=== PATIENT | male | born 1940 | race Caucasian/White ===

== ENCOUNTER 2016-12-02 05:50 | Day surgery (SDC) | payer MEDICARE ==
[~2016-12-02] VITALS: Ht 167.6 cm; Wt 99.8 kg
[~2016-12-02 05:50] MED LIST: ADVAIR DISK1 IN; ADVAIR DISK1 INH; ALBUTEROL0.083 % IN; ALBUTEROL2.5 MG/3 M IN; ALL DAY10 MG OR; ASPIRIN81 MG OR; CLARITIN10 MG OR; COZAAR100 MG PO; DILTIAZEM120 M1 OR; FIBER THERAPY500 MG OR; FISH OIL1000 MG OR; FLUNISOLIDE0.025 %; KEFLEX500 MG PO; LASIX20 MG PO; LISINOPRIL5 MG OR; LORTAB 5-325 MG1 TAB PO; MULTIVITAM10 OR; OMEPRAZOLE20 MG OR; PREDNISONE5 MG OR; PROAIR HFA IN; ROBITUSSIN AC10 ML OR; ROBITUSSIN AC10 ML PO; SAW PALMETTO160 MG OR; SIMCOR1 TA1 OR; SINGULAIR10 MG OR; SOMA350 MG PO; TAM75CAP PO; VITAMIN B CO OR; ZITHROMAX250 MG OR; ZITHROMAX250 MG PO
[2016-12-02 07:42] VITALS: BP 127/59
== END 2016-12-02 08:20 | disposition home or self-care (01) ==
LOC: ENDO 05:50
PROVIDERS: ATTEND Surgery
PROC: 0DJD8ZZ Inspection of Lower Intestinal Tract, Via Natural or Artificial Opening Endoscopic (ICD-10-PCS; principal; 2016-12-02)
DX: Z12.11 Encounter for screening for malignant neoplasm of colon (principal); K57.30 Diverticulosis of large intestine without perforation or abscess without bleeding; J44.9 Chronic obstructive pulmonary disease, unspecified; I10 Essential (primary) hypertension

== ENCOUNTER 2017-03-11 16:27 | Emergency (ER) | payer MEDICARE ==
[~2017-03-11] VITALS: Ht 167.6 cm; Wt 100.0 kg
[2017-03-11 18:37] VITALS: BP 179/87
[2017-03-11] MEDS ORDERED: AMOXICILLIN500 MG PO (20:24)
[2017-03-11] MEDS ORDERED: LORTAB 1010 MG PO (20:24)
== END 2017-03-11 20:40 | disposition home or self-care (01) ==
LOC: ED 16:27
PROC: 0HQGXZZ Repair Left Hand Skin, External Approach (ICD-10-PCS; principal; 2017-03-11)
PROC: 2W3KX1Z Immobilization of Left Finger using Splint (ICD-10-PCS; 2017-03-11)
DX: S61.215A Laceration without foreign body of left ring finger without damage to nail, initial encounter (principal); W25.XXXA Contact with sharp glass, initial encounter; Y93.89 Activity, other specified; Y92.003 Bedroom of unspecified non-institutional (private) residence as the place of occurrence of the external cause

== ENCOUNTER 2017-03-12 15:51 | Emergency (ER) | payer MEDICARE ==
[~2017-03-12] VITALS: Ht 167.6 cm; Wt 106.0 kg
[~2017-03-12 15:51] MED LIST changes: +AMOXICILLIN500 MG PO; +LORTAB 1010 MG PO
[2017-03-12 16:50] VITALS: BP 154/77
== END 2017-03-12 16:50 | disposition home or self-care (01) ==
LOC: ED 15:51
DX: S61.215D Laceration without foreign body of left ring finger without damage to nail, subsequent encounter (principal); I10 Essential (primary) hypertension; J45.909 Unspecified asthma, uncomplicated; X58.XXXD Exposure to other specified factors, subsequent encounter

== ENCOUNTER 2017-04-06 10:15 | Emergency (ER) | payer MEDICARE ==
[~2017-04-06] VITALS: Ht 167.6 cm; Wt 110.0 kg
[2017-04-06 11:07] LABS: HEMATOCRIT 50.5 % (39.0-50.0); HEMOGLOBIN 16.7 g/dl (14.0-18.0); IMMATURE GRANULOCYTES 0.6 % (0.0-1.0); MEAN CELL VOLUME 97.1 fL CALC (80.0-100.0); MEAN CORPUSCULAR HGB 32.1 pG CALC (26.0-32.0); MEAN CORPUSCULAR HGB CONC 33.1 g/L CALC (32.0-36.0); NEUT# 8.07 thou/uL (1.82-7.42); RED BLOOD COUNT 5.2 mill/uL (4.70-6.10); RED CELL DISTRI WIDTH 14.6 % (11.5-15.5)
[2017-04-06 11:16] LABS: ALKALINE PHOSPHATASE 62 u/l (38-126); ANION GAP 14 (6-22 (CALC)); BILIRUBIN, TOTAL 0.5 mg/dL (0.0-1.4); BUN 19 mg/dL (8-23); BUN/CREATININE RATIO 20 (12-20 (CALC)); CARBON DIOXIDE 26 mmol/l (22-30); CHLORIDE 106 mmol/l (95-108); GFR > 60 ML/MIN (>=60 (CALC)); GFR FOR AFR.AMER. > 60 ML/MIN (>=60 (CALC)); POTASSIUM 4.6 mmol/l (3.5-5.1); SGOT/AST 33 u/l (19-48); SGPT/ALT 56 u/l (11-66); SODIUM 141 mmol/l (137-146); TOTAL PROTEIN 6.5 g/dL (6.3-8.2)
[2017-04-06 11:28] LABS: MYOGLOBIN 42 ng/mL (0 - 121)
[2017-04-06 12:01] LABS: URINE BILIRUBIN - DIPSTICK NEGATIVE (NEGATIVE); URINE BLOOD DIPSTICK NEGATIVE (NEGATIVE); URINE COLOR YELLOW; URINE GLUCOSE - DIPSTICK NEGATIVE (NEGATIVE); URINE KETONE NEGATIVE (NEGATIVE); URINE LEUK ESTERASE NEGATIVE (NEGATIVE); URINE NITRITE - DIPSTICK NEGATIVE (Negative); URINE PROTEIN - DIPSTICK NEGATIVE (NEG-TRACE); URINE UROBILINOGEN - DIPSTICK 0.2 E.U./dL (0.2)
[2017-04-06 12:06] LABS: URINE CLARITY CLEAR
[2017-04-06] MEDS ORDERED: ANTIVERT PO (13:24)
[2017-04-06 13:29] VITALS: BP 211/95
== END 2017-04-06 13:30 | disposition home or self-care (01) ==
LOC: ED 10:15
PROVIDERS: Emergency Medicine
DX: H81.10 Benign paroxysmal vertigo, unspecified ear (principal); I10 Essential (primary) hypertension

== ENCOUNTER 2018-10-20 09:45 | Day surgery (SDC) | payer MEDICARE ==
[~2018-10-20] VITALS: Ht 167.6 cm; Wt 74.8 kg
[~2018-10-20 09:45] MED LIST changes: +ALBUTEROL SUL0.083 % IN; +ANTIVERT PO; +ARAVA20 MG PO; +FLUTICASON50 MCG/ACT; +FOLIC ACID1 MG PO; +HYDROCO/APAP1 TA9 PO; +METHOTREXATE2.5 M2 PO; +MONTELUKAST SOD10 MG PO; +NORVASC5 M1 PO; +TESTOSTERONE; +TESTOSTERONE 50 MG/ML; +VITAMIN B PO; +VITAMIN D PO
[2018-10-20 14:03] VITALS: BP 141/67
== END 2018-10-20 14:08 | disposition home or self-care (01) ==
LOC: ORM 09:45
PROVIDERS: ATTEND Surgery
PROC: 0WUF4JZ Supplement Abdominal Wall with Synthetic Substitute, Percutaneous Endoscopic Approach (ICD-10-PCS; principal; 2018-10-20)
DX: K43.2 Incisional hernia without obstruction or gangrene (principal); I10 Essential (primary) hypertension
CPT/HCPCS: J0131; J2710

== ENCOUNTER 2020-05-22 10:53 | Observation (INO) | payer MEDICARE ==
[~2020-05-22] VITALS: Ht 167.6 cm; Wt 77.0 kg
[~2020-05-22 10:53] MED LIST changes: +CALCIUM POLYCA625 MG PO; +NITROSTAT0.4 MG SL; +TAMSULOSIN0.4 MG PO
--- NOTE | 2020-05-22 10:53 | NUR ---
Pt arrived VIA ambulance to room 14. Pt changed into gown and vitals were obtained.
[2020-05-22 11:08] LABS: HEMATOCRIT 35.7 % (39.0-50.0); HEMOGLOBIN 11.5 g/dl (14.0-18.0); IMMATURE GRANULOCYTES 0.5 % (0.0-5.0); MEAN CELL VOLUME 99.2 fL CALC (80.0-100.0); MEAN CORPUSCULAR HGB 31.9 pG CALC (26.0-32.0); MEAN CORPUSCULAR HGB CONC 32.2 g/dL CAL (32.0-36.0); NEUT# 10.56 thou/uL (1.82-7.42); RED BLOOD COUNT 3.6 mill/uL (4.70-6.10); RED CELL DISTRI WIDTH 15.5 % (11.5-15.5)
[2020-05-22 11:24] LABS: ALBUMIN 3.4 g/dL (3.2-5.0); ALKALINE PHOSPHATASE 126 u/l (38-126); ANION GAP 9 (6-22 (CALC)); BUN 19 mg/dL (8-23); BUN/CREATININE RATIO 27 (12-20 (CALC)); C-REACTIVE PROTEIN 1.2 mg/dL (0-0.9); CARBON DIOXIDE 26 mmol/l (22-30); CHLORIDE 102 mmol/l (95-108); CREATININE 0.7 mg/dL (0.7-1.3); GFR > 60 ML/MIN (>=60 (CALC)); GFR FOR AFR.AMER. > 60 ML/MIN (>=60 (CALC)); LIPASE 59 u/l (23-300); MAGNESIUM 1.6 mg/dL (1.6-2.3); POTASSIUM 4.3 mmol/l (3.5-5.1); SGOT/AST 49 u/l (19-48); SODIUM 133 mmol/l (137-146)
[2020-05-22 11:26] LABS: INTERNATIONAL NORMALIZED RATIO 0.9 RATIO (0.7-1.3); PROTHROMBIN TIME 9.6 SECONDS (9.0-12.5)
[2020-05-22 11:35] LABS: BILIRUBIN, TOTAL 0.8 mg/dL (0.0-1.4)
--- NOTE | 2020-05-22 12:23 | NUR ---
PATIENT REMAINS IN RADIOLOGY AT THIS TIME
--- NOTE | 2020-05-22 13:04 | NUR ---
DR. DONAHUE CURRENTLY BEDSIDE WITH PATIENT AND PATIENT'S TO DISCUSSE RESULTS AND ANSWER QUESTIONS. LUMBAR PUNCTURE DISCUSSED AND RECOMMENDED AT THIS TIME. PATIENT STATES UNDERSTANDING OF PROCEDURE, AGREES WITH CONSENT FORM SIGNED.
[2020-05-22 13:19] LABS: URINE BILIRUBIN - DIPSTICK NEGATIVE (NEGATIVE); URINE BLOOD DIPSTICK MODERATE (NEGATIVE); URINE COLOR YELLOW; URINE GLUCOSE - DIPSTICK NEGATIVE (NEGATIVE); URINE KETONE NEGATIVE (NEGATIVE); URINE LEUK ESTERASE NEGATIVE (NEGATIVE); URINE PH 5.5 (4.5-8.0); URINE PROTEIN - DIPSTICK NEGATIVE (NEG-TRACE); URINE UROBILINOGEN - DIPSTICK 0.2 E.U./dL (0.2)
[2020-05-22 13:27] LABS: URINE NITRITE - DIPSTICK NEGATIVE (Negative)
--- NOTE | 2020-05-22 14:10 | NUR ---
PATIENT LYING FLAT CALL ALSTON WITHIN REACH. GOING HOME AT THIS TIME, PATIENT RESTING WITH EYES CLOSED, STATES, "I NEED A NAP."
--- NOTE | 2020-05-22 16:29 | NUR ---
ATTEMPT TO CALL REPORT, NURSE TO RETURN CALL
--- NOTE | 2020-05-22 16:40 | NUR ---
PATIENT ASSISTED TO BSC, WITH DIARRHEA X'S1
--- NOTE | 2020-05-22 16:55 | NUR ---
ATTEMPT TO CALL REPORT, NURSE UNABLE TO TAKE REPORT AT THIS TIME.
--- NOTE | 2020-05-22 17:10 | NUR ---
REPORT CALLED TO SAMMY AGUILAR.
--- NOTE | 2020-05-22 17:30 | NUR ---
RECEIVED PATIENT FROM ED AT THIS TIME. PATIENT ALERT AND ORIENTED X 3 . PATIENT ORIENTED TO ROOM AND SURROUNDINGS AT THIS TIME. CALL LIGHT AND PERSONAL ITEMS WITHIN REACH. IV ZOYSIN STARTED AT THIS TIME AND PATIENT EDUCATED ON ANTIBIOTICS AT THIS TIME. CERTIFIED MEDICAL ASSISTANT DONE LUNG BASES WERE CLEAR IN UPPER LUNG HOWARD DIMINISHED IN LOWER FIELD. BOWEL SOUNDS ARE PRESENT IN ALL FOUR QUADRANTS. PATIENT EXHIBITS NO EDEMA AT THIS TIME O2 IS ON AT [address] AND BEING MONITORED BY ED AT THIS TIME AND IS CURRENTLY S/T AT 103. PATIENT DENIES ANY PAIN, LUMBAR PUNCTURE SITE IS DRY AND PATIENT DENEIS ANY HEADACHE AT THIS TIME. PATIENT SIDERAILS ARE UP X 2 CALL LIGHT AND PERSONAL ITEMS ARE WITHIN REACH. BEDALARM IN PLACE AT THIS TIME.
[2020-05-22 18:44] VITALS: BP 122/74
--- NOTE | 2020-05-22 19:33 | NUR ---
190 SBAR REPORT RECEIVED FROM SAMMY AGUILAR
--- NOTE | 2020-05-22 19:53 | NUR ---
LAYING IN BED WATCHING TV. ALERT AND ORIENTED. DENIES PAIN AT THIS TIME. CALL LIGHT IN REACH, INSTRUCTED TO CALL FOR ASSISTANCE.
--- NOTE | 2020-05-22 21:15 | NUR ---
RETURNED CALL TO MRS. CARNES. SHE EXPRESSES CONCERNS OF TYPE OF INFECTION PATIENT HAS. SHE WAS INFORMED THAT CULTURES HAVE NOT BEEN RESULTED YET, SO AT THIS POINT INFECTION IS UNKNOWN. SHE ALSO EXPRESSES CONCERNS OF MR. CARNES HAVING FREQUENT BOWEL MOVEMENTS (5-6X PER DAY) OVER THE PAST FEW MONTHS. INFORMED HER THAT I WILL PASS THIS INFORMATION ALONG. SHE WAS GIVEN OPPORTUNITY TO EXPRESS FURTHER CONCERN. ALL CONCERNS EXPRESSED AND ADDRESSED.
[2020-05-22 23:50] VITALS: BP 124/70
--- NOTE | 2020-05-22 23:58 | NUR ---
PATIENT ASSISTED TO BSC FOR BM. LOOSE STOOL NOTED ON BED PAD, DRAW SHEET AND BED PAD CHANGED. ASSISTED BACK TO BED WITHOUT DIFFICULTY, TOLERATED FAIR. IV ZOSYN UP FOR INFUSION. DENIES PAIN AT THIS TIME CALL LIGHT WITHIN REACH, PATIENT STABLE.
[2020-05-23 04:24] VITALS: BP 113/72
--- NOTE | 2020-05-23 05:00 | NUR ---
RESTING QUIETLY EYES CLOSED. BED IN LOW POSITION AND LOCKED. BED ALARM ACTIVATED. CALL LIGHT WITHIN REACH.
[2020-05-23 05:41] LABS: HEMATOCRIT 34.8 % (39.0-50.0); HEMOGLOBIN 11.2 g/dl (14.0-18.0); MEAN CELL VOLUME 97.8 fL CALC (80.0-100.0); MEAN CORPUSCULAR HGB 31.5 pG CALC (26.0-32.0); MEAN CORPUSCULAR HGB CONC 32.2 g/dL CAL (32.0-36.0); RED BLOOD COUNT 3.56 mill/uL (4.70-6.10); RED CELL DISTRI WIDTH 15.5 % (11.5-15.5)
[2020-05-23 05:54] LABS: ANION GAP 8 (6-22 (CALC)); BUN 11 mg/dL (8-23); BUN/CREATININE RATIO 14 (12-20 (CALC)); CALCULATED LDLCHOLESTEROL 58 mg/dL (62-129 (CALC)); CARBON DIOXIDE 25 mmol/l (22-30); CHLORIDE 103 mmol/l (95-108); CHOLESTEROL HDL RATIO 1.9 (<4.4 (CALC)); CREATININE 0.8 mg/dL (0.7-1.3); GFR > 60 ML/MIN (>=60 (CALC)); GFR FOR AFR.AMER. > 60 ML/MIN (>=60 (CALC)); HDL CHOLESTEROL 80 mg/dL (>=40); MAGNESIUM 1.9 mg/dL (1.6-2.3); SODIUM 133 mmol/l (137-146); TOTAL CHOLESTEROL 149 mg/dl (0-199); TOTAL TRIGLYCERIDES 54 mg/dl (30-149); VLDL CHOLESTROL 11 mg/dl (0-38 (CALC))
[2020-05-23 05:55] LABS: POTASSIUM 3.4 mmol/l (3.5-5.1)
[2020-05-23 07:05] VITALS: BP 102/60
--- NOTE | 2020-05-23 07:30 | NUR ---
PATIENT RESTING IN BED. PATIENT DENIES ANY PAIN OR HEADACHE AT THIS TIME. PATIENT LUMBAR PUNCTURE DRESSING DRY AND INTACT. PATIENT LUNG HOWARD ARE CLEAR AND SIDERAILS ARE UP X 2 BED ALARM ON . CALL LIGHT IS WITHIN REACH AND PERSONAL ITEMS ARE WITHIN REACH. PATIENT STATES HE HAS HAD DIARREAH ALL NIGHT. TELE MONITOR ON WILL CONTINUE TO MONITOR.
--- NOTE | 2020-05-23 07:43 | NUR ---
S: SRIDEVI CARNES is a 80 M who presents with sepsis. He has a history of hypertension, BPH, CAD, COPD, and GERD. All medications in patient's chart were reviewed. O: VS: BP 102/60 mmHg, P 67 bpm, RR 18 breaths per min, T 96.9 F W 77 kg, HT 66 in, Scr= 1 mg/dL, CrCl= 66 ml/min A: Blood culture is pending. CSF culture is pending. P: Patient is on Zosyn 3.375 g IV Q6H. Vancomycin ordered for pharmacy to dose. Start Vancomycin 1000 mg IV Q12H. Vancomycin trough is drawn before the 4th dose on 05/24/20 @ 0230. Vancomycin goal trough is between 15-20 mcg/ml. Pharmacy will follow and or advise on antibiotics use as needed.
--- NOTE | 2020-05-23 09:27 | NUR ---
PATIENT COMPLAINING OF PAIN IN RIGHT SHOULDER. PATIENT STATES HIS PAIN IS A "5" ON THE PAIN SCALE OF 0-10. HYDROCODONE 5/325MG ONE TAB GIVEN AT THIS TIME. SIDERAILS ARE UP X2 CALL LIGHT AND PERSONAL ITEMS WITHIN REACH. WILL CONTINUE TO MONITOR.
--- NOTE | 2020-05-23 09:53 | NUR ---
PATIENT PAIN LEVEL RE-EVALUATED AT THIS TIME PATIENT STATES HIS PAIN LEVEL IS A "1" OUT OF PAIN SCALE OF 0-10. WILL CONTINUE TO MONITOR.
[2020-05-23 10:46] VITALS: BP 99/70
--- NOTE | 2020-05-23 11:52 | NUR ---
PATIENT SITTING UP IN BED AT THIS TIME. PATIENT STATES HE HAS NO PAIN AT THIS TIME. PATIENT EDUCATED ON CAMPYLOBACTER INFECTION AND GIVEN EDUCATION PAPERWORK ON THIS INFECTION. PATIENT VERBALIZES UNDERSTANDING OF EDUCATION MATERIAL GIVEN AT THIS TIME. SIDERAILS ARE UP CALL LIGHT AND PERSONAL ITEMS WTIHIN REACH.
--- NOTE | 2020-05-23 13:20 | NUR ---
PATIENT IN TO SEE PATIENT AT THIS TIME.
--- NOTE | 2020-05-23 14:20 | NUR ---
SITTING AT BEDSIDE WITH PATIENT AND WHEN SHE WAS ASKED IF SHE BROUGHT IN THE PATIENTS HOME MEDICATION SHE STATED "YES" AND HE ALREADY TOOK A DOSE". IT WAS EXPLAINED TO AND PATIENT THAT WHEN YOU BRING MEDICINE INTO THE HOSPITAL YOU SHOULD LET THE NURSE HAVE IT SO IT CAN BE TAKEN DOWN TO PHARMACY TO BE PROFILED FOR USE. PATIENT STATED HE DIDN'T KNOW THAT. PHARMACY CALLED AND PHARMACIST RAY ERAZO TO PUT THE REMAINING PILLS INTO A AND AND PATIENT LABEL AND SEND TO PHARMACY FOR PROPER IDENTIFICATION AND PROFILING AT THIS THIS TIME.
--- NOTE | 2020-05-23 14:40 | NUR ---
OKSANA FROM ED CALLED AND STATED PATIENT IS HAVING MORE FREQUENT PVC'S. [facility] WAS NOTIFIED AND NO OTHER ORDERS GIVEN. WILL CONTINUE TO MONITOR.
[2020-05-23 15:09] VITALS: BP 118/73
--- NOTE | 2020-05-23 16:00 | NUR ---
PATIENT RESTING IN BED AT THIS TIME. PATIENT DENIES ANY NEEDS AT THIS TIME. PATIENT SIDERAILS ARE UP X2 CALL LIGHT AND PERSONAL ITEMS WITHIN REACH AT THIS ITME.
--- NOTE | 2020-05-23 19:38 | NUR ---
PT CALLED TO ASK FOR ASSISTANCE CLEANING UP, HE WAS INCONTINENT OF LOOSE STOOL AND WAS SITTING ON THE BSC UPON ENTERING THE ROOM. HE HAD DARK LOOSE STOOL ON GOWN AND FLOOR. I CLEANED HIM OF STOOL AND PROVIDED FRESH GOWN. ENCOURAGED HIM TO CALL IF HE NEEDS TO GET UP OR NEEDS ANY ASSISTANCE AT ALL AGAIN, VERBALIZED UNDERSTANDING. CALL LIGHT AT SIDE.
[2020-05-23 19:55] VITALS: BP 120/70
--- NOTE | 2020-05-23 20:50 | NUR ---
PT MEDICATED ORDERS PROVIDE. NO S/O DISTRESS NOTED AT THIS TIME. LIGHTS AND TV ARE TURNED OFF. CALL LIGHT AT SIDE.
--- NOTE | 2020-05-23 22:25 | NUR ---
ASSISTED PT TO BSC AND BACK TO BED. BSC EMPTIED OF WATERY BROWN STOOL. PROVIDED REPLACEMENT WIPES AND BARRIER CREAM FOR COMFORT. PT DENIES ANY OTHER NEEDS AT THIS TIME.
[2020-05-23 23:58] VITALS: BP 112/65
--- NOTE | 2020-05-24 04:17 | NUR ---
lab is in with pt at this time. Pt is awake and talkative, denies any needs at this time. No distress noted.
[2020-05-24 04:25] VITALS: BP 116/65
[2020-05-24 05:52] LABS: ANION GAP 5 (6-22 (CALC)); BUN 11 mg/dL (8-23); BUN/CREATININE RATIO 14 (12-20 (CALC)); CARBON DIOXIDE 26 mmol/l (22-30); CHLORIDE 107 mmol/l (95-108); CREATININE 0.8 mg/dL (0.7-1.3); GFR > 60 ML/MIN (>=60 (CALC)); GFR FOR AFR.AMER. > 60 ML/MIN (>=60 (CALC)); POTASSIUM 3.8 mmol/l (3.5-5.1); SODIUM 134 mmol/l (137-146)
[2020-05-24 07:11] VITALS: BP 118/68
--- NOTE | 2020-05-24 07:13 | NUR ---
SHIFT CHANGE REPORT, PT PLEASANTLY AWAKE ALERT AND ORIENTED, NO C/O DISCOMFORT AND STATES HE FEELS MUCH BETTER AT THIS TIME AND READY TO GO HOME, O2 @ 2L VIA NC IN PLACE, TELE MONITOR IN PLACE, CALL [facility]ON IN REACH.
[2020-05-24 08:32] VITALS: BP 118/68
[2020-05-24] MEDS ORDERED: ZITHROMAX500 MG PO (10:29)
--- NOTE | 2020-05-24 11:11 | NUR ---
MD ROUNDED, INFORMED AND DISCUSSED D/C PLANS, PT STATED UNDERSTANDING AND ANXIUS TO GO HOME, SHOWERED, TELE MONITOR PLACED ON NSG STATION.
--- NOTE | 2020-05-24 11:19 | NUR ---
Discharge instructions given. Patient verbalizes understanding of same. Discharged in good condition via Wheelchair to Home with *Other. All belongings sent with pt. FRIEND DOWNSTAIRS WAITING TO RECEIVE PT.
== END 2020-05-24 11:22 | disposition home or self-care (01) ==
LOC: ED 10:53 → ED-I 15:07 → ED 16:06 → MS2 16:20
PROVIDERS: Family Medicine; Nurse Practitioner; ADMIT Internal Medicine; ATTEND Internal Medicine
PROC: 009U3ZX Drainage of Spinal Canal, Percutaneous Approach, Diagnostic (ICD-10-PCS; principal; 2020-05-22)
DX: A41.9 Sepsis, unspecified organism (principal); A04.5 Campylobacter enteritis; I10 Essential (primary) hypertension; J44.9 Chronic obstructive pulmonary disease, unspecified; I25.10 Atherosclerotic heart disease of native coronary artery without angina pectoris; N40.0 Benign prostatic hyperplasia without lower urinary tract symptoms; K21.9 Gastro-esophageal reflux disease without esophagitis; Z20.822 Contact with and (suspected) exposure to COVID-19
CPT/HCPCS: J1650; Q9967

== ENCOUNTER 2022-11-16 14:01 | Observation (INO) | payer MEDICARE ==
[~2022-11-16] VITALS: Ht 167.6 cm; Wt 86.9 kg
[2022-11-16] VITALS (54 sets, daily range): BP systolic 92–162; BP diastolic 50–116
[~2022-11-16 14:01] MED LIST changes: +ZITHROMAX500 MG PO
[2022-11-16 14:52] LABS: BASO% 0.4 % (0-3); EOS% 2.4 % (0-8); HEMATOCRIT 33.5 % (39.0-50.0); HEMOGLOBIN 11.1 g/dl (14.0-18.0); IMMATURE GRANULOCYTES 0.2 % (0.0-5.0); MEAN CELL VOLUME 102.4 fL CALC (80.0-100.0); MEAN CORPUSCULAR HGB 33.9 pG CALC (26.0-32.0); MEAN CORPUSCULAR HGB CONC 33.1 g/dL CAL (32.0-36.0); MONO% 13.8 % (2-13); NEUT# 3.32 thou/uL (1.82-7.42); NEUT% 61.2 % (42-76); RED BLOOD COUNT 3.27 mill/uL (4.70-6.10); RED CELL DISTRI WIDTH 16.7 % (11.5-15.5)
[2022-11-16 15:10] LABS: D-DIMER 1.63 mg/L (0.19-0.60)
[2022-11-16 15:14] LABS: ACT PARTIAL THROMBO TIME 23.6 SECONDS (20.0-32.5); INTERNATIONAL NORMALIZED RATIO 1.1 RATIO (0.7-1.3); PROTHROMBIN TIME 10.3 SECONDS (9.0-12.5)
[2022-11-16 16:16] LABS: ALBUMIN 3.7 g/dL (3.2-5.0); ALKALINE PHOSPHATASE 240 u/l (38-126); ANION GAP 11 (6-22 (CALC)); BUN 20 mg/dL (8-23); BUN/CREATININE RATIO 23 (12-20 (CALC)); CARBON DIOXIDE 21 mmol/l (22-30); CHLORIDE 104 mmol/l (95-108); CREATININE 0.9 mg/dL (0.7-1.3); GFR FOR AFR.AMER. > 60 ML/MIN (>=60 (CALC)); GFR OTHER RACES > 60 ML/MIN (>=60 (CALC)); POTASSIUM 4.3 mmol/l (3.5-5.1); SODIUM 131 mmol/l (137-146); TOTAL PROTEIN 6.2 g/dL (6.3-8.2)
[2022-11-16 16:21] LABS: BILIRUBIN, TOTAL 0.8 mg/dL (0.2-1.3); SGOT/AST 94 u/l (19-48)
[2022-11-16] MEDS ORDERED: ZOLOFT100 MG PO (19:12)
[2022-11-16] MEDS ORDERED: MULT VITAMI1 PO (19:12)
[2022-11-17] VITALS (101 sets, daily range): BP systolic 91–166; BP diastolic 47–107
[2022-11-17 06:19] LABS: BASO% 0.3 % (0-3); EOS% 3.4 % (0-8); HEMATOCRIT 35.3 % (39.0-50.0); HEMOGLOBIN 11.4 g/dl (14.0-18.0); IMMATURE GRANULOCYTES 0.1 % (0.0-5.0); LYMPH% 18.5 % (15-41); MEAN CELL VOLUME 102.3 fL CALC (80.0-100.0); MEAN CORPUSCULAR HGB CONC 32.3 g/dL CAL (32.0-36.0); MONO% 9.3 % (2-13); NEUT# 4.8 thou/uL (1.82-7.42); NEUT% 68.4 % (42-76); RED BLOOD COUNT 3.45 mill/uL (4.70-6.10)
[2022-11-17 06:32] LABS: ALBUMIN 3.4 g/dL (3.2-5.0); ALKALINE PHOSPHATASE 221 u/l (38-126); BILIRUBIN, TOTAL 0.8 mg/dL (0.2-1.3); BUN 17 mg/dL (8-23); BUN/CREATININE RATIO 22 (12-20 (CALC)); CARBON DIOXIDE 22 mmol/l (22-30); CHLORIDE 108 mmol/l (95-108); CREATININE 0.8 mg/dL (0.7-1.3); GFR FOR AFR.AMER. > 60 ML/MIN (>=60 (CALC)); GFR OTHER RACES > 60 ML/MIN (>=60 (CALC)); SGOT/AST 71 u/l (19-48); SODIUM 135 mmol/l (137-146); TOTAL PROTEIN 6.1 g/dL (6.3-8.2)
[2022-11-17 06:34] LABS: ANION GAP 9 (6-22 (CALC)); POTASSIUM 3.9 mmol/l (3.5-5.1)
[2022-11-18] VITALS (13 sets, daily range): BP systolic 86–146; BP diastolic 45–82
[2022-11-18 07:38] LABS: BASO% 0.1 % (0-3); EOS% 0.8 % (0-8); HEMATOCRIT 35.8 % (39.0-50.0); HEMOGLOBIN 11.5 g/dl (14.0-18.0); IMMATURE GRANULOCYTES 0.4 % (0.0-5.0); LYMPH% 17.6 % (15-41); MEAN CELL VOLUME 103.8 fL CALC (80.0-100.0); MEAN CORPUSCULAR HGB 33.3 pG CALC (26.0-32.0); MEAN CORPUSCULAR HGB CONC 32.1 g/dL CAL (32.0-36.0); MONO% 12.9 % (2-13); NEUT% 68.2 % (42-76); RED BLOOD COUNT 3.45 mill/uL (4.70-6.10)
[2022-11-18 07:52] LABS: ALBUMIN 3.2 g/dL (3.2-5.0); ALKALINE PHOSPHATASE 273 u/l (38-126); ANION GAP 8 (6-22 (CALC)); BILIRUBIN, TOTAL 1.4 mg/dL (0.2-1.3); BUN 15 mg/dL (8-23); BUN/CREATININE RATIO 21 (12-20 (CALC)); CARBON DIOXIDE 23 mmol/l (22-30); CHLORIDE 108 mmol/l (95-108); CREATININE 0.7 mg/dL (0.7-1.3); GFR FOR AFR.AMER. > 60 ML/MIN (>=60 (CALC)); GFR OTHER RACES > 60 ML/MIN (>=60 (CALC)); POTASSIUM 3.8 mmol/l (3.5-5.1); SGOT/AST 102 u/l (19-48); SODIUM 134 mmol/l (137-146); TOTAL PROTEIN 5.8 g/dL (6.3-8.2)
[2022-11-18] MEDS ORDERED: XARELTO10 MG PO (13:45)
[2022-11-18] MEDS ORDERED: DILTIAZEM HCL180 MG PO (13:45)
[2022-11-23] MEDS ORDERED: DILTIAZEM HCL180 MG PO (11:59)
[2022-11-23] MEDS ORDERED: DILTIAZEM HCI120 MG PO (12:09)
== END 2022-11-18 14:25 | disposition home or self-care (01) ==
LOC: ED 14:01 → ED-I 15:14 → ED 15:14 → ED-I 15:25 → ED 19:10 → ICU 19:11
PROVIDERS: Emergency Medicine; ADMIT Student in an Organized Health Care Education/Training Program; ATTEND Student in an Organized Health Care Education/Training Program
DX: I48.91 Unspecified atrial fibrillation (principal); I48.92 Unspecified atrial flutter; J44.1 Chronic obstructive pulmonary disease with (acute) exacerbation; R07.9 Chest pain, unspecified; I10 Essential (primary) hypertension; K21.9 Gastro-esophageal reflux disease without esophagitis; N40.0 Benign prostatic hyperplasia without lower urinary tract symptoms; I34.0 Nonrheumatic mitral (valve) insufficiency; M06.9 Rheumatoid arthritis, unspecified; Z87.891 Personal history of nicotine dependence
CPT/HCPCS: J3475; Q9967

== ENCOUNTER 2022-11-22 10:19 | Observation (INO) | payer MEDICARE ==
[~2022-11-22] VITALS: Ht 167.6 cm; Wt 81.0 kg
[2022-11-22] VITALS (29 sets, daily range): BP systolic 99–165; BP diastolic 47–96
[~2022-11-22 10:19] MED LIST changes: +DILTIAZEM HCL180 MG PO; +MULT VITAMI1 PO; +XARELTO10 MG PO; +ZOLOFT100 MG PO
[2022-11-22 11:10] LABS: BASO% 0.6 % (0-3); EOS% 4.6 % (0-8); HEMATOCRIT 34.7 % (39.0-50.0); HEMOGLOBIN 11.2 g/dl (14.0-18.0); IMMATURE GRANULOCYTES 0.2 % (0.0-5.0); LYMPH% 22.9 % (15-41); MEAN CELL VOLUME 103.3 fL CALC (80.0-100.0); MEAN CORPUSCULAR HGB 33.3 pG CALC (26.0-32.0); MEAN CORPUSCULAR HGB CONC 32.3 g/dL CAL (32.0-36.0); MONO% 9.5 % (2-13); NEUT# 2.96 thou/uL (1.82-7.42); NEUT% 62.2 % (42-76); RED BLOOD COUNT 3.36 mill/uL (4.70-6.10); RED CELL DISTRI WIDTH 16.2 % (11.5-15.5)
[2022-11-22 11:11] LABS: ALBUMIN 3.3 g/dL (3.2-5.0); ALKALINE PHOSPHATASE 200 u/l (38-126); ANION GAP 9 (6-22 (CALC)); BUN 16 mg/dL (8-23); BUN/CREATININE RATIO 20 (12-20 (CALC)); CARBON DIOXIDE 23 mmol/l (22-30); CHLORIDE 107 mmol/l (95-108); CREATININE 0.8 mg/dL (0.7-1.3); GFR FOR AFR.AMER. > 60 ML/MIN (>=60 (CALC)); GFR OTHER RACES > 60 ML/MIN (>=60 (CALC)); SGOT/AST 49 u/l (19-48); SODIUM 135 mmol/l (137-146)
[2022-11-22 11:23] LABS: BILIRUBIN, TOTAL 0.8 mg/dL (0.2-1.3)
[2022-11-22 11:41] LABS: TSH, 3RD GENERATION 2.27 uIU/mL (0.47 - 4.68)
[2022-11-23] VITALS (25 sets, daily range): BP systolic 86–143; BP diastolic 49–107
[2022-11-23 05:04] LABS: HEMATOCRIT 31.6 % (39.0-50.0); HEMOGLOBIN 10.2 g/dl (14.0-18.0); MEAN CELL VOLUME 102.6 fL CALC (80.0-100.0); MEAN CORPUSCULAR HGB 33.1 pG CALC (26.0-32.0); MEAN CORPUSCULAR HGB CONC 32.3 g/dL CAL (32.0-36.0); RED BLOOD COUNT 3.08 mill/uL (4.70-6.10); RED CELL DISTRI WIDTH 16.1 % (11.5-15.5)
[2022-11-23 05:19] LABS: ALBUMIN 2.9 g/dL (3.2-5.0); ALKALINE PHOSPHATASE 170 u/l (38-126); ANION GAP 5 (6-22 (CALC)); BILIRUBIN, TOTAL 0.5 mg/dL (0.2-1.3); BUN 14 mg/dL (8-23); BUN/CREATININE RATIO 18 (12-20 (CALC)); CARBON DIOXIDE 25 mmol/l (22-30); CHLORIDE 110 mmol/l (95-108); CREATININE 0.8 mg/dL (0.7-1.3); GFR FOR AFR.AMER. > 60 ML/MIN (>=60 (CALC)); GFR OTHER RACES > 60 ML/MIN (>=60 (CALC)); MAGNESIUM 1.8 mg/dL (1.6-2.3); POTASSIUM 3.4 mmol/l (3.5-5.1); SGOT/AST 35 u/l (19-48); SODIUM 136 mmol/l (137-146); TOTAL PROTEIN 5.5 g/dL (6.3-8.2)
[2022-11-23] MEDS ORDERED: DILTIAZEM HCL180 MG PO (11:59)
[2022-11-23] MEDS ORDERED: DILTIAZEM HCI120 MG PO (12:09)
== END 2022-11-22 13:10 | disposition home or self-care (01) ==
LOC: ED 10:19 → ED-I 12:00 → ED 12:23 → ED-I 12:24
PROVIDERS: Family Medicine; ADMIT Student in an Organized Health Care Education/Training Program; ATTEND Student in an Organized Health Care Education/Training Program
DX: I47.1 Supraventricular tachycardia (principal); I48.91 Unspecified atrial fibrillation; E87.6 Hypokalemia; J81.0 Acute pulmonary edema; I10 Essential (primary) hypertension; J45.909 Unspecified asthma, uncomplicated; T46.1X6A Underdosing of calcium-channel blockers, initial encounter; Z91.138 Patient's unintentional underdosing of medication regimen for other reason; Z87.891 Personal history of nicotine dependence

== ENCOUNTER 2022-11-25 10:34 | Inpatient (IN) | payer MEDICARE ==
[~2022-11-25] VITALS: Ht 167.6 cm; Wt 81.5 kg
[2022-11-25] VITALS (42 sets, daily range): BP systolic 87–145; BP diastolic 47–118
[~2022-11-25 10:34] MED LIST changes: +DILTIAZEM HCI120 MG PO
--- NOTE | 2022-11-25 10:47 | NUR ---
PT SENT IN BY DR DIMAS FOR TREATMENT OF AFIB RVR, PT C/O PALPITATIONS AND SHORTNESS OF BREATH
[2022-11-25 11:07] LABS: BASO% 0.8 % (0-3); EOS% 4.3 % (0-8); HEMATOCRIT 37.8 % (39.0-50.0); HEMOGLOBIN 11.8 g/dl (14.0-18.0); IMMATURE GRANULOCYTES 0.2 % (0.0-5.0); LYMPH% 20.3 % (15-41); MEAN CELL VOLUME 105.6 fL CALC (80.0-100.0); MEAN CORPUSCULAR HGB CONC 31.2 g/dL CAL (32.0-36.0); MONO% 11.1 % (2-13); NEUT# 3.25 thou/uL (1.82-7.42); NEUT% 63.3 % (42-76); RED BLOOD COUNT 3.58 mill/uL (4.70-6.10); RED CELL DISTRI WIDTH 16.2 % (11.5-15.5)
[2022-11-25 11:20] LABS: INTERNATIONAL NORMALIZED RATIO 1.2 RATIO (0.7-1.3); PROTHROMBIN TIME 11.7 SECONDS (9.0-12.5)
[2022-11-25 11:26] LABS: ALKALINE PHOSPHATASE 177 u/l (38-126); ANION GAP 7 (6-22 (CALC)); BILIRUBIN, TOTAL 0.6 mg/dL (0.2-1.3); BUN 11 mg/dL (8-23); BUN/CREATININE RATIO 12 (12-20 (CALC)); CARBON DIOXIDE 28 mmol/l (22-30); CHLORIDE 106 mmol/l (95-108); CREATININE 0.9 mg/dL (0.7-1.3); GFR FOR AFR.AMER. > 60 ML/MIN (>=60 (CALC)); GFR OTHER RACES > 60 ML/MIN (>=60 (CALC)); MAGNESIUM 1.8 mg/dL (1.6-2.3); SODIUM 137 mmol/l (137-146)
[2022-11-25 11:27] LABS: D-DIMER 0.73 mg/L (0.19-0.60)
[2022-11-25 11:51] LABS: ALBUMIN 3.8 g/dL (3.2-5.0); SGOT/AST 73 u/l (19-48); TOTAL PROTEIN 7.1 g/dL (6.3-8.2)
--- NOTE | 2022-11-25 12:07 | NUR ---
PT IS ALERT IN BED. PT IS VERBALIZING NO NEEDS AT THIS TIME.
--- NOTE | 2022-11-25 13:52 | NUR ---
PT IS IN STRETCHER. VS STABLE. PT IS ALERT AND VERBALIZES NO NEEDS AT THIS TIME.
--- NOTE | 2022-11-25 14:44 | NUR ---
PT IS RESTING. PT IS AROUSABLE. VS STABLE.
--- NOTE | 2022-11-25 15:30 | NUR ---
REPORT GIVEN TO SEARCH MARKETING ANALYST.
--- NOTE | 2022-11-25 15:30 | NUR ---
PT REPORT RECEIVED FROM ER STAFF. WALKED INTO ROOM TO SPEAK WITH PT AND RECOGNIZED PT FROM A COUPLE OF DAYS AGO. PT HAD CAME IN WITH SAME COMPLAINT OF FAST HEART RATE AND IN AFIB. STATES HE HAD WENT TO SEE DR. LINDA FOR CHECK UP AND HIS HEART RATE WAS IN THE 140'S, SO WAS SENT OVER TO ER FOR EVALUATION. PT ALERT/ORIENTED X3, DENIES ANY CHEST PAIN BUT STATES DOES HAVE A LITTLE RIGHT SHOULDER PAIN. HAS SOME SLIGHT WHEEZING, BUT STATES HAS ASTHMA AND IT HAS BEEN BOTHERING HIM FOR A DAY OR TWO. IS ON ADVAIR AND NEB TXS AT HOME. PT DENIES ANY PROBLEM. DR. RAMIREZ IN SEEING PT AMD SPEAKING WITH HIM ABOUT WHAT THE PLAN IS. ADVISED PT TO NOT GETUP UNLESS HE USES CALL LIGHT. PT AGREES. DIETARY ORDERED PER PT REQUEST.
--- NOTE | 2022-11-25 17:10 | NUR ---
PT RESTING QUIETLY ON STRETCHER, ADVISED THAT AT SHIFT CHANGE HE WOULD BE MOVING TO ICU. DENIES ANY PAIN AT THIS TIME. REMAINS ALERT/ORIENTED. REMAINS IN AFIB WITH HEART RATE IN THE LOW 100'S. AMIODARONE HAS BEEN TITRATED DOWN TO .5 PER PROTOCOL .
--- NOTE | 2022-11-25 17:16 | NUR ---
WHEN I WALKED INTO ROOM AT 1430 TO TAKE REPORT PT WAS ON THE NEBULIZER AT THAT TIME, I DONT KNOW WHO PULLED IT OUT BUT SINCE I DIDNT I DID NOT SCAN THE MEDICATION. BUT MEDICATION WAS GIVEN. PT STATES HIS WHEEZING LESSENED AFTER TAKING THE MEDICATION.
--- NOTE | 2022-11-25 19:00 | NUR ---
REPORT RECIEVED FROM OFF GOING NURSE. PATIENT TRANSFERRED TO ICU UNIT BY ICU NURSE. HE IS ON AMIODORONE DRIP @ 0.5. PER OFF GOING NURSE, DOSE CHANGED AT 1700. HE IS ON O2 @ 2L SATS IN THE MID 90S. HE IS AFIB ON THE MONITOR. ASSESSMENT COMPLETED. HE IS A/O X3. HIS HR INCREASES WITH ACTIVITY. EXPIRATORY WHEEZES NOTED THROUGHOUT THE LUNGS. BOWEL SOUNDS ACTIVE IN ALL FOUR QUADS. SKIN INTACT. NO EDEMA NOTED. HE IS AMBULATORY WITH STANDBY ASSIST FOR SAFETY. HE STATED THE PAIN HE HAD EARLIER WAS CONTROLLED WITH THE TYLENOL. HE DENIES ANY PAIN OR DISCOMFORT AT THIS TIME. NO ACUTE DISTRESS NOTED. WILL CONTINUE TO MONITOR.
--- NOTE | 2022-11-25 20:00 | NUR ---
NO CHANGES NOTED WILL CONTINUE TO MONITOR.
--- NOTE | 2022-11-25 22:00 | NUR ---
PATIENT LYING IN BED RESTING COMFORTABLY WITH NO ACUTE DISTRESS NOTED. HE STATED HE CANNOT SLEEP. ORDER RECEIVED FOR SLEEPING PILL. WILL CONTINUE TO MONITOR.
[2022-11-26] VITALS (89 sets, daily range): BP systolic 89–156; BP diastolic 43–124
--- NOTE | 2022-11-26 | NUR ---
PATIENT SLEEPING, AMIODORONED DRIP STILL RUNNING. HE IS AFIB WITH PULSE OF 100-110. NO ACUTE DISTRESS NOTED. WILL CONTINUE TO MONITOR.
--- NOTE | 2022-11-26 02:00 | NUR ---
PATIENT SLEEPING COMFORTABLY WITH NO ACUTE DISTRESS NOTED.
--- NOTE | 2022-11-26 04:00 | NUR ---
PATIENT SLEEPING COMFORTABLY WITH NO ACUTE DISTRESS NOTED. AMIO DRIP STILL RUNNING. PULSE INCREASES WITH ACTIVITY. WILL CONTINUE TO MONITOR.
--- NOTE | 2022-11-26 05:34 | NUR ---
PATIENT UP TO USE BATHROOM. HE COMPLAINS OF SOB. HE WAS MEDICATED X1 WITH PRN ALBUTEROL. HR NOTED ELEVATED AT THIS TIME. WILL CONTINUE TO MONITOR.
--- NOTE | 2022-11-26 06:01 | NUR ---
PATIENT LYING IN BED RESTING COMFORTABLY WITH NO ACUTE DISTRESS NOTED. AMIO DRIP STILL GOING AT THIS TIME.
--- NOTE | 2022-11-26 07:09 | NUR ---
NO ACUTE DISTRESS NOTED.
--- NOTE | 2022-11-26 07:55 | NUR ---
PT SITTING UP IN BED, DENIES ANY CHEST PAIN, HEART RATE REMAINS IN THE 130'S., EATING BREAKFAST, REQUESTING MORE COFFEE. STATES SLEPT WELL LAST NIGHT. SLIGHT WHEEZING IN LOWER HOWARD, JUST HAD NEB TX APPROX 15 MIN BEFORE SHIFT STARTED AND STATES FEELS BETTER, PT HAS HX OF ASTHMA.
--- NOTE | 2022-11-26 08:17 | NUR ---
OCCUPATIONAL AND PHYSICAL THERAPY AT BEDSIDE, PT LAUGHING AND JOKING WITH THEM.
--- NOTE | 2022-11-26 09:18 | NUR ---
LAB HERE FOR BLOOD DRAW, SPOKE WITH DR. RAMIREZ ON PHONE AND GAVE NEW ORDER FOR DIGOXIN TO BE GIVEN, WAITING FOR PHARMACY TO VERIFY, HR REMAINS IN MID 130'S, WITH NO CHEST PAIN OR ANY OTHER COMPLAINTS.
[2022-11-26 09:37] LABS: BASO% 0.7 % (0-3); EOS% 4.8 % (0-8); HEMATOCRIT 34.4 % (39.0-50.0); HEMOGLOBIN 11.3 g/dl (14.0-18.0); IMMATURE GRANULOCYTES 0.4 % (0.0-5.0); LYMPH% 17.4 % (15-41); MEAN CORPUSCULAR HGB 33.8 pG CALC (26.0-32.0); MEAN CORPUSCULAR HGB CONC 32.8 g/dL CAL (32.0-36.0); MONO% 10.6 % (2-13); NEUT# 3.73 thou/uL (1.82-7.42); NEUT% 66.1 % (42-76); RED BLOOD COUNT 3.34 mill/uL (4.70-6.10)
--- NOTE | 2022-11-26 10:15 | NUR ---
NEB TX BEGUN
[2022-11-26 10:38] LABS: ALBUMIN 3.3 g/dL (3.2-5.0); ALKALINE PHOSPHATASE 161 u/l (38-126); ANION GAP 6 (6-22 (CALC)); BILIRUBIN, TOTAL 0.4 mg/dL (0.2-1.3); BUN 11 mg/dL (8-23); BUN/CREATININE RATIO 13 (12-20 (CALC)); CARBON DIOXIDE 26 mmol/l (22-30); CHLORIDE 107 mmol/l (95-108); CREATININE 0.8 mg/dL (0.7-1.3); GFR FOR AFR.AMER. > 60 ML/MIN (>=60 (CALC)); GFR OTHER RACES > 60 ML/MIN (>=60 (CALC)); SGOT/AST 49 u/l (19-48); SODIUM 135 mmol/l (137-146); TOTAL PROTEIN 6.2 g/dL (6.3-8.2)
--- NOTE | 2022-11-26 13:25 | NUR ---
PTS HEART RATE DOWN TO [address] AT BEDSIDE.
--- NOTE | 2022-11-26 14:36 | NUR ---
PT RESTING QUIETLY ON BED, READING, DENIES ANY CHEST PAIN OR SOB. HEART RATE BOUNCING AROUND IN THE 120'S.
--- NOTE | 2022-11-26 15:33 | NUR ---
PT RESTING QUIETLY. NOTICED NEW RYTHMN ON MONITER, DR. RAMIREZ WAS IN DEPARTMENT, NO NEW ORDERS GIVEN, PRINTED STRIP AND PLACED IN CHART. APPEARS TO BE AFLUTTER. WILL VERIFY WITH EKG
--- NOTE | 2022-11-26 17:31 | NUR ---
PT REMAINS RESTING COMFORTABLY. ADVISED OF PLAN OF CARE. WAITING FOR MAGNESTIUM DRIP FROM RN CIRCULATING, THEN WILL HANG, PTS HEART RATE REMAINS IN THE 130'S, DR. AWARE. ADVVISED TO CALL HIM IF HEART RATE GOES OVER 150
--- NOTE | 2022-11-26 18:23 | NUR ---
PT RESTING QUIETLY , NO COMPLAINTS, HR 115
--- NOTE | 2022-11-26 19:00 | NUR ---
REPORT RECEIVED FROM OFF GOING NURSE.
--- NOTE | 2022-11-26 20:00 | NUR ---
PATIENT LYING IN BED WITH NO ACUTE DISTRESS NOTED. ASSESSMENT COMPLETED, HE IS A/O X3. A FLUTTER NOTED ON MONITOR. HR NOTED FROM 90S TO 130S. MD IS AWARE AND DOES NOT WANT TO BE CONTACTED UNLESS HR IS 150+. HE IS ON O2 @ 2L, O2 SATS NOTED BETWEEN 96-100. LUNGS CLEAR, BOWEL SOUNDS ACTIVE. HE DENIES ANY PAIN OR DISCOMFORT. PATIENT NOTED EATING AND DRINKING WITH NO ISSUES. HE IS SALINE LOCKED AT THIS TIME. HE IS AMBULATORY WITH STANDBY ASSIST. HE BECOMES SOB WITH EXERTION. WILL CONTINUE TO MONITOR.
--- NOTE | 2022-11-26 22:00 | NUR ---
PATIENT LYING IN BED RESTING COMFORTABLY WITH NO ACUTE DISTRESS NOTED. A-FLUTTER NOTED ON MONITOR. HR NOTED IN THE 90S. IT INCREASES WITH ACTIVITY. HE DENIES ANY PAIN OR DISCOMFORT. WILL CONTINUE TO MONITOR.
[2022-11-27] VITALS (16 sets, daily range): BP systolic 90–167; BP diastolic 46–120
--- NOTE | 2022-11-27 | NUR ---
PATIENT SLEEPING WITH NO ACUTE DISTRESS NOTED. HR AFLUTTER IN THE 80S. WILL CONTINUE TO MONITOR.
--- NOTE | 2022-11-27 02:00 | NUR ---
PATIENT SLEEPING HR IS CONTROLLED FLUTTER. BP NORMAL. NO ACUTE DISTRESS NOTED. WILL CONTINUE TO MONITOR.
--- NOTE | 2022-11-27 04:00 | NUR ---
PATIENT SLEEPING. HIS HR IS CONTROLLED FLUTTER. NO ACUTE DISTRESS NOTED. WILL CONTINUE TO MONITOR.
[2022-11-27 05:12] LABS: BASO% 0.3 % (0-3); EOS% 6.4 % (0-8); HEMATOCRIT 35.7 % (39.0-50.0); HEMOGLOBIN 11.5 g/dl (14.0-18.0); IMMATURE GRANULOCYTES 0.2 % (0.0-5.0); LYMPH% 20.3 % (15-41); MEAN CELL VOLUME 104.7 fL CALC (80.0-100.0); MEAN CORPUSCULAR HGB 33.7 pG CALC (26.0-32.0); MEAN CORPUSCULAR HGB CONC 32.2 g/dL CAL (32.0-36.0); MONO% 13.7 % (2-13); NEUT# 3.61 thou/uL (1.82-7.42); NEUT% 59.1 % (42-76); RED BLOOD COUNT 3.41 mill/uL (4.70-6.10); RED CELL DISTRI WIDTH 15.7 % (11.5-15.5)
[2022-11-27 05:25] LABS: ALBUMIN 3.1 g/dL (3.2-5.0); ALKALINE PHOSPHATASE 175 u/l (38-126); ANION GAP 7 (6-22 (CALC)); BILIRUBIN, TOTAL 0.5 mg/dL (0.2-1.3); BUN 11 mg/dL (8-23); BUN/CREATININE RATIO 13 (12-20 (CALC)); CARBON DIOXIDE 26 mmol/l (22-30); CHLORIDE 107 mmol/l (95-108); CREATININE 0.9 mg/dL (0.7-1.3); GFR FOR AFR.AMER. > 60 ML/MIN (>=60 (CALC)); GFR OTHER RACES > 60 ML/MIN (>=60 (CALC)); POTASSIUM 3.9 mmol/l (3.5-5.1); SGOT/AST 37 u/l (19-48); SODIUM 136 mmol/l (137-146); TOTAL PROTEIN 5.7 g/dL (6.3-8.2)
[2022-11-27 05:33] LABS: MAGNESIUM 2.4 mg/dL (1.6-2.3)
--- NOTE | 2022-11-27 06:00 | NUR ---
PATIENT SLEEPING WITH NO ACUTE DISTRESS NOTED. VSS. HIS PULSE HAS BEEN CONTROLLED ALL NIGHT. WILL CONTINUE TO MONITOR.
--- NOTE | 2022-11-27 08:23 | NUR ---
Patient up to bathroom per patient's requested. Patient made aware of high HR, but insisted on using the bathroom "as this is what she he has been allowed to do yesterday". Assessment completed. Denies pain at this time. Dry, nonproductive cough noted. Expiratory wheezing noted upon ascultation. Peripheral pulses strong. Denies pain. 2L via NC. Denies using oxygen at home. A/O x 4. NAD noted. Bed in low position. Will continue with POC.
--- NOTE | 2022-11-27 08:36 | NUR ---
PATIENT DESCRIBES BM AT SOFT, LIGHT BROWN AND LARGE.
--- NOTE | 2022-11-27 09:26 | NUR ---
Contacted nursing and treatment held, for transfer to [facility].
--- NOTE | 2022-11-27 10:11 | NUR ---
Patient sitting up in bed. Son-in-law at bedside. Denies pain. NAD noted. Aflutter on the monitor. Bed in low position. Call light next to L hand. Will continue with plan of care.
--- NOTE | 2022-11-27 11:46 | NUR ---
Patient sitting up on the side of the bed. NAD noted. Bed in low position. Aflutter on the monitor. Breathing even and unlabored. Will continue with POC.
--- NOTE | 2022-11-27 14:42 | NUR ---
Patient left the unit via stretcher accompained by Positive Transport Team. Patient accepted at [facility] bed 881-A.
== END 2022-11-27 14:42 | disposition short-term general hospital (02) | DRG 310 ==
LOC: ED 10:34 → ED-I 13:30 → ED 13:48 → MS2 13:49 → ED-I 14:25 → ICU 18:56
PROVIDERS: Family Medicine; ADMIT Student in an Organized Health Care Education/Training Program; ATTEND Student in an Organized Health Care Education/Training Program
DX: I47.1 Supraventricular tachycardia (principal); I48.91 Unspecified atrial fibrillation; I10 Essential (primary) hypertension; E87.6 Hypokalemia; J45.909 Unspecified asthma, uncomplicated; F32.A Depression, unspecified; G47.00 Insomnia, unspecified; Z87.891 Personal history of nicotine dependence
CPT/HCPCS: J0282; J1160; J3475; Q9967

== ENCOUNTER 2023-08-25 10:17 | Inpatient (IN) | payer OTHER, MEDICARE ==
[~2023-08-25] VITALS: Ht 167.6 cm; Wt 86.2 kg
[2023-08-25] VITALS (33 sets, daily range): BP systolic 103–153; BP diastolic 40–95
--- NOTE | 2023-08-25 10:26 | NUR ---
PATIENT TO ROOM 13 VIA WHEELCHAIR
[2023-08-25] MEDS ORDERED: Pantoprazole Sodium 40 MG VIAL (Protonix) IV ONE (10:45)
[2023-08-25 10:53] LABS: BASO% 0.6 % (0-3); EOS% 3.2 % (0-8); IMMATURE GRANULOCYTES 0.1 % (0.0-5.0); LYMPH% 17.1 % (15-41); MEAN CELL VOLUME 104.7 fL CALC (80.0-100.0); MEAN CORPUSCULAR HGB 32.9 pG CALC (26.0-32.0); MEAN CORPUSCULAR HGB CONC 31.5 g/dL CAL (32.0-36.0); MONO% 8.4 % (2-13); NEUT# 5.79 thou/uL (1.82-7.42); NEUT% 70.6 % (42-76); RED BLOOD COUNT 2.58 mill/uL (4.70-6.10); RED CELL DISTRI WIDTH 16.6 % (11.5-15.5)
[2023-08-25 10:55] LABS: HEMOGLOBIN 8.5 g/dl (14.0-18.0)
[2023-08-25 11:04] LABS: ALBUMIN 3.1 g/dL (3.2-5.0); ALKALINE PHOSPHATASE 118 u/l (38-126); ANION GAP 5 (6-22 (CALC)); BILIRUBIN, TOTAL 0.5 mg/dL (0.2-1.3); BUN 26 mg/dL (8-23); BUN/CREATININE RATIO 34 (12-20 (CALC)); CARBON DIOXIDE 25 mmol/l (22-30); CHLORIDE 110 mmol/l (95-108); CREATININE 0.8 mg/dL (0.7-1.3); ESTIMATED GFR 89 ML/MIN (>=90 (CALC)); POTASSIUM 4.1 mmol/l (3.5-5.1); SGOT/AST 41 u/l (19-48); SODIUM 136 mmol/l (137-146); TOTAL PROTEIN 5.7 g/dL (6.3-8.2)
[2023-08-25] MEDS ORDERED: CLOPIDOGREL75 MG PO (11:32)
[2023-08-25] MEDS ORDERED: TOPROL XL25 MG PO (11:36)
[2023-08-25] MEDS ORDERED: METHOTREXATE S2.5 M1 (11:41)
--- NOTE | 2023-08-25 12:00 | NUR ---
NO ACUTE DISTRESS NOTED.
[2023-08-25] MEDS ORDERED: AMIODARONE HYD200 MG (12:29)
--- NOTE | 2023-08-25 13:00 | NUR ---
NO ACUTE DISTRESS NOTED.
[2023-08-25] MEDS ORDERED: PIPERACILLIN Sodium-Tazobactam 3.375 GM in SODIUM CHLORIDE 0.9% 100 ML IV ONE (13:20)
[2023-08-25] MEDS ORDERED: SODIUM CHLORIDE 0.9% 1,000 ML IV ONE (13:20)
[2023-08-25] MEDS ORDERED: ACETAMINOPHEN 325 MG/TAB PO PRN (14:20)
[2023-08-25] MEDS ORDERED: SODIUM CHLORIDE 0.9% 1,000 ML IV PRN (14:20)
[2023-08-25] MEDS ORDERED: MAGNESIUM HYDROXIDE 30 ML UDC PO PRN (14:20)
[2023-08-25] MEDS ORDERED: ONDANSETRON HCl 4 MG/2 ML SDV IV PRN (14:30)
[2023-08-25] MEDS ORDERED: MORPHINE SULFATE 4 MG/ML VIAL IV PRN (14:30)
--- NOTE | 2023-08-25 14:49 | NUR ---
PATIENT RESTING COMFORTABLY WITH NO ACUTE DISTRESS NOTED.
[2023-08-25] MEDS ORDERED: FUROSEMIDE 40 MG/4 ML SDV IV ONE (15:55)
--- NOTE | 2023-08-25 16:46 | NUR ---
575 CLEAR YELLOW URINE EMPTIED FROM URINAL.
--- NOTE | 2023-08-25 17:55 | NUR ---
REPORT GIVEN TO DAVID BOND NURSE.
--- NOTE | 2023-08-25 17:58 | NUR ---
PATIENT TRAMSPORTED TO [facility] ROOM 261 WITH TELE #7.
--- NOTE | 2023-08-25 18:05 | NUR ---
PT ARRIVED TO MED SURG FROM ER VIA W/C. PT IS ALERT AND ORIENTED X 3, NO C/O PAIN AT THIS TIME. PT HAS TELE ON WITH ALL LEADS ATTACHED. IV SITE # 20 TO RAC CLEAN AND INTACT WITH PROTONIX DRIP INFUSING. PT SKIN WITH SCATTERED BRUISING THROUGHOUT, PER PT IT IS FROM BLOOD THINNERS; SKIN IS INTACT. PT AMBULATES TO BATHROOM FOR TOILETING NEEDS. PT OREINTED TO ROOM. PT HAS CALL LIGHT AND SAFETY MEASURES IN PLACE AT THIS TIME.
[2023-08-25 18:11] LABS: BASO% 0.8 % (0-3); EOS% 3.4 % (0-8); HEMATOCRIT 25.1 % (39.0-50.0); HEMOGLOBIN 7.8 g/dl (14.0-18.0); IMMATURE GRANULOCYTES 0.2 % (0.0-5.0); LYMPH% 17.8 % (15-41); MEAN CELL VOLUME 104.6 fL CALC (80.0-100.0); MEAN CORPUSCULAR HGB 32.5 pG CALC (26.0-32.0); MEAN CORPUSCULAR HGB CONC 31.1 g/dL CAL (32.0-36.0); NEUT# 3.99 thou/uL (1.82-7.42); NEUT% 67.8 % (42-76); RED BLOOD COUNT 2.4 mill/uL (4.70-6.10); RED CELL DISTRI WIDTH 16.6 % (11.5-15.5)
[2023-08-25] MEDS ORDERED: PIPERACILLIN Sodium-Tazobactam 3.375 GM in SODIUM CHLORIDE 0.9% 100 ML IV SCH (19:00)
--- NOTE | 2023-08-25 20:00 | NUR ---
RECEIVED REPORT FROM NURSE DAVID, PATIENT ALERT ORIENTED AMBULATORY, DENIES PAIN AT THIS TIME, IV ON RAC G 20 NS @ 100CC/HR INFUSING WELL, ON TELEMETRY, PATIENT CURRENTLY ON NPO, BREATHING EVEN UNLABORED CALL LIGHT IN REACHED.
[2023-08-25] MEDS ORDERED: MONTELUKAST SODIUM 10 MG/TAB PO SCH (21:00)
[2023-08-25 21:29] LABS: ACT PARTIAL THROMBO TIME 60.4 SECONDS (20.0-32.5); INTERNATIONAL NORMALIZED RATIO 5.1 RATIO (0.7-1.3)
[2023-08-25] MEDS ORDERED: SODIUM CHLORIDE 0.9% 500 ML IV ONE ×2 (21:35)
--- NOTE | 2023-08-25 22:55 | NUR ---
CONSENT FOR BLOOD TRANSFUSION OBTAINED, V/S OBTAINE PRIOR TO TRANSFUSION.
--- NOTE | 2023-08-25 22:56 | NUR ---
UNIT OF FRESH FROZEN PLASMA ONGOING, NO REACTIONS NOTED AT THIS TIME.
--- NOTE | 2023-08-25 23:58 | NUR ---
NO ALLERGIC REACTION NOTED FROM PLASMA, BRE NOTIN DISTRESS, CALL LIGHT IN REACHED.
[2023-08-26] VITALS (25 sets, daily range): BP systolic 102–133; BP diastolic 26–58
--- NOTE | 2023-08-26 00:55 | NUR ---
ONGOING 1ST UNIT OF RBC ONGOING, V/S OBTAINED PRIPR TO BLOOD.
[2023-08-26] MEDS ORDERED: FUROSEMIDE 40 MG/4 ML SDV IV SCH (01:45)
--- NOTE | 2023-08-26 01:57 | NUR ---
ongoing prbc, no reaction noted at this time.
[2023-08-26] MEDS ORDERED: IPRATROPIUM-Albuterol 0.5MG-2.5MG/3 ML IN SCH (02:45)
--- NOTE | 2023-08-26 03:19 | NUR ---
unit of prb complete, john reaction noted.
[2023-08-26 05:30] LABS: BASO% 0.8 % (0-3); EOS% 2.9 % (0-8); HEMATOCRIT 25.5 % (39.0-50.0); HEMOGLOBIN 8.2 g/dl (14.0-18.0); IMMATURE GRANULOCYTES 0.2 % (0.0-5.0); LYMPH% 18.4 % (15-41); MEAN CELL VOLUME 99.2 fL CALC (80.0-100.0); MEAN CORPUSCULAR HGB 31.9 pG CALC (26.0-32.0); MEAN CORPUSCULAR HGB CONC 32.2 g/dL CAL (32.0-36.0); MONO% 9.2 % (2-13); NEUT# 3.36 thou/uL (1.82-7.42); NEUT% 68.5 % (42-76); RED BLOOD COUNT 2.57 mill/uL (4.70-6.10); RED CELL DISTRI WIDTH 18.3 % (11.5-15.5)
[2023-08-26 06:22] LABS: ALBUMIN 2.6 g/dL (3.2-5.0); CREATININE 0.8 mg/dL (0.7-1.3); MAGNESIUM 1.9 mg/dL (1.6-2.3); POTASSIUM 3.4 mmol/l (3.5-5.1); TOTAL PROTEIN 4.8 g/dL (6.3-8.2)
[2023-08-26 06:27] LABS: BILIRUBIN, TOTAL 0.8 mg/dL (0.2-1.3)
[2023-08-26] MEDS ORDERED: IPRATROPIUM-Albuterol 0.5MG-2.5MG/3 ML NEB PRN (06:40)
[2023-08-26] MEDS ORDERED: IPRATROPIUM-Albuterol 0.5MG-2.5MG/3 ML NEB SCH (07:00)
[2023-08-26] MEDS ORDERED: POTASSIUM CHLORIDE 20 MEQ/PKT POWDER PO SCH (07:00)
--- NOTE | 2023-08-26 07:50 | NUR ---
PT AOX4, RESPIRATIONS ARE EVEN AND UNLABORED, LUNGS CLEAR, BOWEL SOUNDS ARE ACTIVE, PEDAL PULSES PALPABLE TO TOUCH, PT DID HAVE A BM THIS MORNING WHILE I WAS WITH HIM AND IT WAS RUNNY AND DARK BROWN/BLACK IN COLOR, PT DENIES PAIN AT THIS TIME.
[2023-08-26] MEDS ORDERED: TAMSULOSIN HCL 0.4 MG CAP PO SCH (08:00)
[2023-08-26 08:02] LABS: PROTHROMBIN TIME 30.8 SECONDS (9.0-12.5)
[2023-08-26 08:03] LABS: ACT PARTIAL THROMBO TIME 46.6 SECONDS (20.0-32.5); INTERNATIONAL NORMALIZED RATIO 3.4 RATIO (0.7-1.3)
[2023-08-26] MEDS ORDERED: METOPROLOL SUCCINATE 25 MG/TAB-TOPROL XL PO SCH (09:00)
[2023-08-26] MEDS ORDERED: AMIODARONE 200 MG/TAB PO SCH (09:00)
[2023-08-26] MEDS ORDERED: FLUTICASONE PROPIONATE (Nasal) 50MCG/SPRAY INH SCH (09:00)
[2023-08-26] MEDS ORDERED: dilTIAZem HCl COATED BEADS 240 MG/CAP PO SCH (09:00)
[2023-08-26] MEDS ORDERED: FOLIC ACID 1 MG/TAB PO SCH (09:00)
[2023-08-26] MEDS ORDERED: PHYTONADIONE 5 MG/TAB PO SCH (10:30)
[2023-08-26] MEDS ORDERED: SODIUM CHLORIDE 0.9% 500 ML IV PRN ×2 (10:50→16:30)
[2023-08-26 12:04] LABS: BASO% 0.8 % (0-3); EOS% 0.6 % (0-8); HEMOGLOBIN 7.7 g/dl (14.0-18.0); IMMATURE GRANULOCYTES 0.2 % (0.0-5.0); LYMPH% 17.1 % (15-41); MEAN CELL VOLUME 99.6 fL CALC (80.0-100.0); MEAN CORPUSCULAR HGB CONC 32.1 g/dL CAL (32.0-36.0); MONO% 7.8 % (2-13); NEUT# 3.7 thou/uL (1.82-7.42); NEUT% 73.5 % (42-76); RED BLOOD COUNT 2.41 mill/uL (4.70-6.10); RED CELL DISTRI WIDTH 18.8 % (11.5-15.5)
--- NOTE | 2023-08-26 20:00 | NUR ---
RECEIVED REPORT FROM NURSE EKTA, PATIENT ALERT ORIENTED, ONOING UNIT OF PRBC INFUSING WELL, PATIENT IV ON LAC G 20 SALINE LOCK AND 20 ON RAC PATENT FLUSHES WELL, ON TELEMETRY, PATIENT SCATTERED BRUISING NOTED, CALL LIGHT IN REACHED.
[2023-08-26 22:59] LABS: BASO% 0.8 % (0-3); EOS% 1.8 % (0-8); IMMATURE GRANULOCYTES 0.2 % (0.0-5.0); LYMPH% 21.2 % (15-41); MEAN CELL VOLUME 99.1 fL CALC (80.0-100.0); MEAN CORPUSCULAR HGB 31.8 pG CALC (26.0-32.0); MEAN CORPUSCULAR HGB CONC 32.1 g/dL CAL (32.0-36.0); MONO% 8.6 % (2-13); NEUT# 4.14 thou/uL (1.82-7.42); NEUT% 67.4 % (42-76); RED BLOOD COUNT 2.2 mill/uL (4.70-6.10); RED CELL DISTRI WIDTH 17.4 % (11.5-15.5)
[2023-08-26 23:12] LABS: HEMATOCRIT 21.8 % (39.0-50.0)
--- NOTE | 2023-08-26 23:21 | NUR ---
RECEIVED CRITICAL HGB 7.0, MECHANICAL INTERN ALESSANDRO AWARE, ORDER TO GIVE ANOTHER UNIT OF RBC.
[2023-08-26] MEDS ORDERED: SODIUM CHLORIDE 0.9% 250 ML IV PRN (23:40)
[2023-08-27] VITALS (21 sets, daily range): BP systolic 94–134; BP diastolic 35–67
--- NOTE | 2023-08-27 00:32 | NUR ---
PREV/S TRANFUSION OBTAINED AND RECORDED, CONSENT SECURED, PATIENT UNIT OF PRBC STARTED AT 0031.
--- NOTE | 2023-08-27 04:39 | NUR ---
PATINET RESTING IN BED, EYES CLOSED, BREATHING EVEN UNLABORED CALL LIGHT IN REACHED.
[2023-08-27 06:07] LABS: BASO% 0.5 % (0-3); EOS% 2.6 % (0-8); HEMATOCRIT 23.3 % (39.0-50.0); HEMOGLOBIN 7.7 g/dl (14.0-18.0); IMMATURE GRANULOCYTES 0.2 % (0.0-5.0); LYMPH% 18.2 % (15-41); MEAN CELL VOLUME 95.9 fL CALC (80.0-100.0); MEAN CORPUSCULAR HGB 31.7 pG CALC (26.0-32.0); MONO% 6.3 % (2-13); NEUT# 4.14 thou/uL (1.82-7.42); NEUT% 72.2 % (42-76); RED BLOOD COUNT 2.43 mill/uL (4.70-6.10); RED CELL DISTRI WIDTH 17.5 % (11.5-15.5)
[2023-08-27 06:42] LABS: ALBUMIN 2.1 g/dL (3.2-5.0); BILIRUBIN, TOTAL 0.8 mg/dL (0.2-1.3); CREATININE 0.7 mg/dL (0.7-1.3); MAGNESIUM 1.9 mg/dL (1.6-2.3); TOTAL PROTEIN 4.1 g/dL (6.3-8.2)
[2023-08-27 06:46] LABS: ACT PARTIAL THROMBO TIME 28.6 SECONDS (20.0-32.5)
[2023-08-27 06:56] LABS: POTASSIUM 4.2 mmol/l (3.5-5.1)
--- NOTE | 2023-08-27 07:41 | NUR ---
PT IS AOX3, RESTING COMFORTABLY IN BED THIS MORNING. RESPIRATIONS ARE EVEN AND UNLABORED, LUNGS SOUND CLEAR, BOWEL SOUNDS ACTIVE IN ALL 4 QUADRANTS, PEDAL PULSES PALPABLE TO TOUCH, PT DENIES PAIN THIS MORNING. PT STATES HE IS NOW ABLE TO "FART WITHOUT ANYTHING COMING OUT" THIS MORNING.
[2023-08-27 07:56] LABS: INTERNATIONAL NORMALIZED RATIO 1.9 RATIO (0.7-1.3); PROTHROMBIN TIME 17.8 SECONDS (9.0-12.5)
[2023-08-27] MEDS ORDERED: PHYTONADIONE 5 MG/TAB PO SCH (09:00)
--- NOTE | 2023-08-27 09:19 | NUR ---
DR WILKERSON AT BEDSIDE DISCUSSING PLAN OF CARE WITH PT AT THIS TIME.
--- NOTE | 2023-08-27 10:01 | NUR ---
DR WALLS AT BEDSIDE DISCUSSING PLAN OF CARE WITH PT AT THIS TIME.
[2023-08-27] MEDS ORDERED: SODIUM CHLORIDE 0.9% 500 ML IV PRN (10:30)
[2023-08-27] MEDS ORDERED: SODIUM CHLORIDE 0.9% 500 ML IV ONE ×2 (10:30)
[2023-08-27] MEDS ORDERED: CALCIUM GLUCONATE 1 GM in SODIUM CHLORIDE 0.9% 50 ML IV SCH (11:30)
[2023-08-27] MEDS ORDERED: FUROSEMIDE 40 MG/4 ML SDV IV PRN (11:55)
[2023-08-27 18:18] LABS: BASO% 0.6 % (0-3); EOS% 2.7 % (0-8); HEMATOCRIT 25.9 % (39.0-50.0); HEMOGLOBIN 8.5 g/dl (14.0-18.0); IMMATURE GRANULOCYTES 0.3 % (0.0-5.0); LYMPH% 28.8 % (15-41); MEAN CELL VOLUME 93.8 fL CALC (80.0-100.0); MEAN CORPUSCULAR HGB 30.8 pG CALC (26.0-32.0); MEAN CORPUSCULAR HGB CONC 32.8 g/dL CAL (32.0-36.0); MONO% 7.7 % (2-13); NEUT# 3.99 thou/uL (1.82-7.42); NEUT% 59.9 % (42-76); RED BLOOD COUNT 2.76 mill/uL (4.70-6.10); RED CELL DISTRI WIDTH 18.8 % (11.5-15.5)
--- NOTE | 2023-08-27 20:00 | NUR ---
BEDSIDE SHIFT REPORT COMPLETED. CALL LIGHT WITHIN REACH. NO C/O NOTED AT PRESENT TIME.
[2023-08-28] VITALS (12 sets, daily range): BP systolic 104–132; BP diastolic 37–74
--- NOTE | 2023-08-28 | NUR ---
CONTINUES ON PROTONIX DRIP. DENIES PAIN OR DISCOMFORT AT CURRENT TIME.
[2023-08-28 00:55] LABS: EOS% 6.2 % (0-8); HEMOGLOBIN 7.3 g/dl (14.0-18.0); IMMATURE GRANULOCYTES 0.6 % (0.0-5.0); LYMPH% 29.4 % (15-41); MEAN CELL VOLUME 93.6 fL CALC (80.0-100.0); MEAN CORPUSCULAR HGB 31.1 pG CALC (26.0-32.0); MEAN CORPUSCULAR HGB CONC 33.2 g/dL CAL (32.0-36.0); MONO% 9.7 % (2-13); NEUT# 2.75 thou/uL (1.82-7.42); NEUT% 53.1 % (42-76); RED BLOOD COUNT 2.35 mill/uL (4.70-6.10)
--- NOTE | 2023-08-28 04:00 | NUR ---
REQUESTED TYLENOL FOR HEADACHE. RESTING IN BED. EASILY AROUSABLE. CONTINUES ON PROTONIX DRIP.
[2023-08-28 06:18] LABS: BASO% 1.1 % (0-3); HEMATOCRIT 21.6 % (39.0-50.0); HEMOGLOBIN 7.2 g/dl (14.0-18.0); IMMATURE GRANULOCYTES 0.6 % (0.0-5.0); LYMPH% 24.6 % (15-41); MEAN CELL VOLUME 94.7 fL CALC (80.0-100.0); MEAN CORPUSCULAR HGB 31.6 pG CALC (26.0-32.0); MEAN CORPUSCULAR HGB CONC 33.3 g/dL CAL (32.0-36.0); MONO% 8.8 % (2-13); NEUT# 2.64 thou/uL (1.82-7.42); NEUT% 56.9 % (42-76); RED BLOOD COUNT 2.28 mill/uL (4.70-6.10); RED CELL DISTRI WIDTH 19.4 % (11.5-15.5)
[2023-08-28 06:30] LABS: ALBUMIN 2.2 g/dL (3.2-5.0); CREATININE 0.9 mg/dL (0.7-1.3); TOTAL PROTEIN 4.1 g/dL (6.3-8.2)
[2023-08-28 06:31] LABS: BILIRUBIN, TOTAL 0.4 mg/dL (0.2-1.3)
[2023-08-28 06:43] LABS: ACT PARTIAL THROMBO TIME 23.9 SECONDS (20.0-32.5); INTERNATIONAL NORMALIZED RATIO 1.2 RATIO (0.7-1.3); PROTHROMBIN TIME 11.2 SECONDS (9.0-12.5)
--- NOTE | 2023-08-28 08:00 | NUR ---
PT IN BED WITH HOB UP, PT IS ALERT AND ORIENTED X3. PT HAS NO C/O PAIN AT THIS TIME. PT TELE ON WITH ALL LEADS ATTACHED. PT IV SITE TO [facility] CLEAN AND INTACT WITH PROTONIX INFUSING. PT AMBULATES TO BEDSIDE COMMODE FOR TOOILETING NEEDS. PT HAS CALL LIGHT WITHIN REACH AND SAFETY MEASURES IN PLACE AT THIS TIME.
[2023-08-28] MEDS ORDERED: SODIUM CHLORIDE 0.9% 500 ML IV ONE (09:00)
--- NOTE | 2023-08-28 09:30 | NUR ---
1 UNIT OF PRBC ORDERED AND GIVEN. PT VSS, AND NO REACTION. PT HAS CALL LIGHT WIHTIN REACH AND SAFETY MEASURES IN PLACE AT THIS TIME.
[2023-08-28] MEDS ORDERED: Pantoprazole Sodium 40 MG VIAL (Protonix) IV SCH (11:30)
--- NOTE | 2023-08-28 12:00 | NUR ---
PT IN BED EATIG LUNCH. PT HAS NO C/O PAIN AT THIS TIME. PT HAS CALL LIGHT WITHIN REACH AND SAFETY MEASURES IN PLACE.
[2023-08-28 13:06] LABS: BASO% 0.9 % (0-3); EOS% 5.9 % (0-8); HEMOGLOBIN 8.9 g/dl (14.0-18.0); IMMATURE GRANULOCYTES 0.3 % (0.0-5.0); LYMPH% 18.2 % (15-41); MEAN CELL VOLUME 94.1 fL CALC (80.0-100.0); NEUT# 3.88 thou/uL (1.82-7.42); NEUT% 67.7 % (42-76); RED BLOOD COUNT 2.87 mill/uL (4.70-6.10); RED CELL DISTRI WIDTH 18.3 % (11.5-15.5)
--- NOTE | 2023-08-28 16:00 | NUR ---
PT IN BED RESTING WATCHING TV. PT HAS NO C/O PAIN AT THIS TIME. PT HAS CALL LIGHT WITHIN REACH AND SAFETY MEASURES IN PLACE AT THIS TIME.
[2023-08-28 18:37] LABS: BASO% 0.4 % (0-3); EOS% 5.8 % (0-8); HEMOGLOBIN 7.8 g/dl (14.0-18.0); IMMATURE GRANULOCYTES 0.2 % (0.0-5.0); LYMPH% 23.5 % (15-41); MEAN CELL VOLUME 96.4 fL CALC (80.0-100.0); MEAN CORPUSCULAR HGB 31.3 pG CALC (26.0-32.0); MEAN CORPUSCULAR HGB CONC 32.5 g/dL CAL (32.0-36.0); MONO% 8.9 % (2-13); NEUT# 3.29 thou/uL (1.82-7.42); NEUT% 61.2 % (42-76); RED BLOOD COUNT 2.49 mill/uL (4.70-6.10); RED CELL DISTRI WIDTH 18.6 % (11.5-15.5)
--- NOTE | 2023-08-28 20:00 | NUR ---
PT RESTING NO DISTRESS NOTED ON ASSESSMENT. PT REPORTS NO PAIN. VS WNL ON RA. IV SITE FLUSHED WORKING PROPERLY FLUIDS INFUSION ONGOING. GENERALIZED BRUISING ALL OVER HIS BODY. CALL LIGHT WITHIN REACH. PLAN OF CARE ONGOING.
[2023-08-29] VITALS (12 sets, daily range): BP systolic 141–161; BP diastolic 50–84
--- NOTE | 2023-08-29 | NUR ---
PT RESTING NO DISTRESS NOTED ON EXAM. PT REPORTS NO PAIN AT THIS TIME. IV SITE WORKING PROPERLY ABX STARTED. CALL LIGHT WITHIN REACH. PLAN OF CARE ONGOING.
[2023-08-29 00:33] LABS: EOS% 6.3 % (0-8); HEMATOCRIT 21.5 % (39.0-50.0); HEMOGLOBIN 7.1 g/dl (14.0-18.0); IMMATURE GRANULOCYTES 0.6 % (0.0-5.0); LYMPH% 27.5 % (15-41); MEAN CELL VOLUME 95.6 fL CALC (80.0-100.0); MEAN CORPUSCULAR HGB 31.6 pG CALC (26.0-32.0); MONO% 10.2 % (2-13); NEUT# 2.77 thou/uL (1.82-7.42); NEUT% 54.4 % (42-76); RED BLOOD COUNT 2.25 mill/uL (4.70-6.10); RED CELL DISTRI WIDTH 18.5 % (11.5-15.5)
--- NOTE | 2023-08-29 04:20 | NUR ---
PT SLEEPING NO DISTRESS NOTED ON EXAM. CALL LIGHT WITHIN REACH. PLAN OF CARE ONGOING.
[2023-08-29 05:59] LABS: EOS% 7.1 % (0-8); HEMATOCRIT 22.5 % (39.0-50.0); HEMOGLOBIN 7.3 g/dl (14.0-18.0); IMMATURE GRANULOCYTES 0.4 % (0.0-5.0); LYMPH% 26.6 % (15-41); MEAN CORPUSCULAR HGB 31.5 pG CALC (26.0-32.0); MEAN CORPUSCULAR HGB CONC 32.4 g/dL CAL (32.0-36.0); MONO% 8.5 % (2-13); NEUT# 2.86 thou/uL (1.82-7.42); NEUT% 56.4 % (42-76); RED BLOOD COUNT 2.32 mill/uL (4.70-6.10); RED CELL DISTRI WIDTH 18.5 % (11.5-15.5)
[2023-08-29] MEDS ORDERED: SODIUM CHLORIDE 0.9% 500 ML IV ONE (06:05)
[2023-08-29 06:13] LABS: ALBUMIN 2.1 g/dL (3.2-5.0); ALKALINE PHOSPHATASE 106 u/l (38-126); BUN 17 mg/dL (8-23); BUN/CREATININE RATIO 17 (12-20 (CALC)); CARBON DIOXIDE 25 mmol/l (22-30); CHLORIDE 116 mmol/l (95-108); ESTIMATED GFR 76 ML/MIN (>=90 (CALC)); MAGNESIUM 1.9 mg/dL (1.6-2.3); POTASSIUM 3.7 mmol/l (3.5-5.1); SGOT/AST 37 u/l (19-48); SODIUM 137 mmol/l (137-146)
[2023-08-29 06:23] LABS: BILIRUBIN, TOTAL 0.2 mg/dL (0.2-1.3)
--- NOTE | 2023-08-29 08:00 | NUR ---
PT IN BED WITH HOB UP. PT IS ALERT AND ORIENTED. PT HAS NO C/O PAIN. PT HAS TELE ON WITH ALL LEADS ATTACHED. PT IV SITE TO RAC CLEAN AND INTACT WITH NW INFUSING @ 100 ML/HR. PT CONTINUES TO USE BEDISDE COMMODE. PT HAS CALL LIGHT WIHTIN REACH AND SAFETY MEASURES IN PLACE AT THIS TIME.
[2023-08-29] MEDS ORDERED: Peg 3350-POTASSIUM CHLORIDE-So 4,000 ML BTL PO SCH (10:30)
[2023-08-29 11:45] LABS: HEMATOCRIT 27.9 % (39.0-50.0); HEMOGLOBIN 9.1 g/dl (14.0-18.0); IMMATURE GRANULOCYTES 0.4 % (0.0-5.0); LYMPH% 20.4 % (15-41); MEAN CELL VOLUME 96.5 fL CALC (80.0-100.0); MEAN CORPUSCULAR HGB 31.5 pG CALC (26.0-32.0); MEAN CORPUSCULAR HGB CONC 32.6 g/dL CAL (32.0-36.0); MONO% 9.3 % (2-13); NEUT# 3.01 thou/uL (1.82-7.42); NEUT% 61.9 % (42-76); RED BLOOD COUNT 2.89 mill/uL (4.70-6.10); RED CELL DISTRI WIDTH 17.6 % (11.5-15.5)
--- NOTE | 2023-08-29 12:00 | NUR ---
PT IN BED WITH HOB UP EATING LUNCH. PT IV SITE OUT WITH CATHETER INTACT. ATTEMPTED TO START IV X 3, UNABLE TO START. CALLED ICU NURSE AND [employer] COLLECTION SYSTEM OPERATOR TO ATTEMPT IV, UNABLE. PT HAS CALL LIGHT WITHIN REACH AND SAFETY MEAURES IN PLACE AT THIS TIME.
--- NOTE | 2023-08-29 16:00 | NUR ---
PT UP TO MED SURG FROM ER. PT IS ALERT AND ORIENTED X 3. PT SPEECH IS GARBELED AT THIS TIME BUT CAN MAKE HER NEEDS KNOWN. PT IV SITE TO [facility] CLEAN AND INTACT, SL. PT HAS PUREWICK ON AT THIS TIME AND CAN AMBULATE TO BATHROOM WITH ASSIST. PT ORIENTED TO AND CALL LIGHT. PT HAS CALL LIGHT WITHIN REACH AND SAFETY MEASURES IN PLACE AT THIS TIME.
[2023-08-29 17:55] LABS: EOS% 5.6 % (0-8); HEMATOCRIT 28.6 % (39.0-50.0); HEMOGLOBIN 9.2 g/dl (14.0-18.0); IMMATURE GRANULOCYTES 0.7 % (0.0-5.0); LYMPH% 16.6 % (15-41); MEAN CELL VOLUME 96.6 fL CALC (80.0-100.0); MEAN CORPUSCULAR HGB 31.1 pG CALC (26.0-32.0); MEAN CORPUSCULAR HGB CONC 32.2 g/dL CAL (32.0-36.0); MONO% 10.7 % (2-13); NEUT# 3.86 thou/uL (1.82-7.42); NEUT% 65.4 % (42-76); RED BLOOD COUNT 2.96 mill/uL (4.70-6.10); RED CELL DISTRI WIDTH 18.1 % (11.5-15.5)
[2023-08-29] MEDS ORDERED: hydrALAZINE HCL 20 MG/ML VIAL(1 ML) IV PRN (19:30)
[2023-08-29] MEDS ORDERED: METOPROLOL SUCCINATE 25 MG/TAB-TOPROL XL PO SCH (19:31)
--- NOTE | 2023-08-29 20:00 | NUR ---
PT RESTING NO DISTRESS NOTED ON ASSESSMENT AND NO IV. BUE COVERED IN BRUISED. VS WNL ON RA WHEEZING. PT STATED THAT HE FINISHED THE BOWEL PREP FOR PROCEDURE TOMORROW AND STATED UNDERSTANDING OF NPO AFTER MIDNIGHT. CALL LIGHT WITHIN REACH. PLAN OF CARE ONGOING.
--- NOTE | 2023-08-29 21:30 | NUR ---
NURSE PLACED TWO IV ON PT ONE ON LAC 22G AND ONE ON RW 22G. FLUIDS NS @ 100ML/HR RESTARTED ON RW.
--- NOTE | 2023-08-29 23:00 | NUR ---
PT SIGN CONSENT WITH NURSE FOR EGC/COLOSCOPY FOR TOMORROW.
[2023-08-30] VITALS (7 sets, daily range): BP systolic 136–160; BP diastolic 67–75
--- NOTE | 2023-08-30 | NUR ---
PT RESTING NO DISTRESS NOTED ON EXAM. PT REMINDED OF NPO STATUS. CALL LIGHT WITHIN REACH. PLAN OF CARE ONGOING.
[2023-08-30 00:22] LABS: BASO% 0.6 % (0-3); EOS% 8.9 % (0-8); HEMATOCRIT 26.4 % (39.0-50.0); HEMOGLOBIN 8.6 g/dl (14.0-18.0); IMMATURE GRANULOCYTES 0.2 % (0.0-5.0); LYMPH% 25.4 % (15-41); MEAN CELL VOLUME 96.7 fL CALC (80.0-100.0); MEAN CORPUSCULAR HGB 31.5 pG CALC (26.0-32.0); MEAN CORPUSCULAR HGB CONC 32.6 g/dL CAL (32.0-36.0); MONO% 12.2 % (2-13); NEUT# 2.55 thou/uL (1.82-7.42); NEUT% 52.7 % (42-76); RED BLOOD COUNT 2.73 mill/uL (4.70-6.10); RED CELL DISTRI WIDTH 18.2 % (11.5-15.5)
--- NOTE | 2023-08-30 04:00 | NUR ---
PT RESTING NO DISTRESS NOTED ON EXAM. CALL LIGHT WITHIN REACH. PLAN OF CARE ONGOING.
[2023-08-30 06:09] LABS: BASO% 1.1 % (0-3); EOS% 10.2 % (0-8); HEMATOCRIT 27.5 % (39.0-50.0); HEMOGLOBIN 9.1 g/dl (14.0-18.0); IMMATURE GRANULOCYTES 0.4 % (0.0-5.0); LYMPH% 23.4 % (15-41); MEAN CELL VOLUME 97.5 fL CALC (80.0-100.0); MEAN CORPUSCULAR HGB 32.3 pG CALC (26.0-32.0); MEAN CORPUSCULAR HGB CONC 33.1 g/dL CAL (32.0-36.0); MONO% 12.4 % (2-13); NEUT# 2.42 thou/uL (1.82-7.42); NEUT% 52.5 % (42-76); RED BLOOD COUNT 2.82 mill/uL (4.70-6.10); RED CELL DISTRI WIDTH 18.4 % (11.5-15.5)
[2023-08-30 06:19] LABS: ALBUMIN 2.4 g/dL (3.2-5.0); CREATININE 0.8 mg/dL (0.7-1.3); MAGNESIUM 1.9 mg/dL (1.6-2.3); POTASSIUM 3.6 mmol/l (3.5-5.1); TOTAL PROTEIN 4.4 g/dL (6.3-8.2)
[2023-08-30 06:28] LABS: BILIRUBIN, TOTAL 0.5 mg/dL (0.2-1.3)
--- NOTE | 2023-08-30 06:55 | NUR ---
REPORT RECEIVED FROM [facility]
--- NOTE | 2023-08-30 08:10 | NUR ---
PT RESTING IN SEMI FOWLERS POSITION,A&O X3;ASSESSMENT COMPLETED;PT DENIES ANY CURRENT PAIN OR DISCOMFORTS,PAIN SCALE AND REPORTING EDUCATED;RESPIRATIONS EVEN AND UNLABORED ON RA,CLEAR LUNG SOUNDS;ABDOMEN SOFT ON PALPATION AND ACTIVE IN ALL 4 QUADRANTS;STRONG PEDAL PULSES;SKIN INTACT;TELE MONITORING IN PLACE;#22G TO RW INFUSING NS @ 100ML/HR, PER ORDER;#22G TO LAC FLUSHED AND PATENT,SITE APPEARS HEALTHY;NPO DIET REINFORCED DUE TO SCHEDULED EGD TODAY, PT VERBALIZES UNDERSTANDING;PT DENIES ANY ADDITIONAL NEEDS AND IS ENCOURAGED TO CALL FOR ASSISTANCE IF NEEDED;FALL PRECAUTIONS IN PLACE WITH BED IN THE LOWEST POSITION AND CALL LIGHT IN REACH;FREQUENT ROUNDS MADE.
--- NOTE | 2023-08-30 09:10 | NUR ---
AT BEDSIDE DISCUSSING POC WITH PT.
--- NOTE | 2023-08-30 11:20 | NUR ---
PT RESTING IN SEMI FOWLERS POSITION;RESPIRATIONS EVEN AND UNLABORED ON RA;PT DENIES ANY CURRENT PAIN OR NEEDS;TELE MONITORING IN PLACE;IV SITE PATENT;ENCOURAGED TO CALL FOR ASSISTANCE IF NEEDED;CALL LIGHT IN REACH;FREQUENT ROUNDS MADE.
[2023-08-30] MEDS ORDERED: LIDOCAINE HCL 2% 2ML SDV IV ONE (11:22)
[2023-08-30] MEDS ORDERED: GLYCOPYRROLATE 0.2 MG/ML IV ONE (11:22)
[2023-08-30] MEDS ORDERED: PROPOFOL 200 MG/20 ML VIAL IV ONE (11:22)
--- NOTE | 2023-08-30 11:44 | NUR ---
PT TRANSPORTED TO OR IN STABLE CONDITION VIA STRETCHER ACCOMPANIED BY STAFF
--- NOTE | 2023-08-30 13:30 | NUR ---
PT RETURNED TO MED/SURG ROOM 261 IN STABLE CONDITION VIA STRETCHER ACCOMPANIED BY OR STAFF MEMBERS.BEDSIDE REPORT RECEIVED FROM JEFF FLORES;RESPIRATIONS EVEN AND UNLABORED ON RA;PT DENIES ANY CURRENT PAIN OR DISCOMFORTS;IV SITES X2 PATENT;PT REQUESTING TO GO HOME, NOTIFIED;CALL LIGHT IN REACH;FREQUENT ROUNDS MADE.
--- NOTE | 2023-08-30 15:05 | NUR ---
ALL DISCHARGE INSTRUCTIONS PROVIDED AT THIS TIME;PT INSTRUCTED TO TAKE PLAVIX AND ASPIRIN DIRECTED, STOP TAKING WARFARIN, F/U WITH PCP, AND MONITOR FOR ANY S/S OF BLEEDING.PT VERBALIZES UNDERSTANDING AND DENIES ANY ADDITIONAL QUESTIONS OR NEEDS;IV SITE REMOVED X2 WITH CATHETERS INTACT AND TELE MONITORING D/C;WC TO BE PROVIDED FOR D/C HOME.FRIEND TO TRANSPORT PT HOME.FREQUENT ROUNDS MADE.
--- NOTE | 2023-08-30 15:15 | NUR ---
Discharge instructions given. Patient verbalizes understanding of same. Discharged in stable condition via Wheelchair to Home with friend. All belongings sent with pt. PT TRANSPORTED TO [facility] IN STABLE CONDITION VIA ACCOMPANIED BY EDER GAONA. ALL PERSONAL BELONGINGS LEFT WITH PT.
== END 2023-08-30 15:15 | disposition home or self-care (01) | DRG 917 ==
LOC: ED 10:17 → ED-I 14:00 → ED 14:14 → MS2 14:15
PROVIDERS: Family Medicine; ADMIT Student in an Organized Health Care Education/Training Program; ATTEND Student in an Organized Health Care Education/Training Program
PROC: 30233K1 Transfusion of Nonautologous Frozen Plasma into Peripheral Vein, Percutaneous Approach (ICD-10-PCS; principal; 2023-08-25)
PROC: 30233K1 Transfusion of Nonautologous Frozen Plasma into Peripheral Vein, Percutaneous Approach (ICD-10-PCS; 2023-08-26)
PROC: 30233N1 Transfusion of Nonautologous Red Blood Cells into Peripheral Vein, Percutaneous Approach (ICD-10-PCS; 2023-08-26)
PROC: 30233N1 Transfusion of Nonautologous Red Blood Cells into Peripheral Vein, Percutaneous Approach (ICD-10-PCS; 2023-08-26)
PROC: 30233K1 Transfusion of Nonautologous Frozen Plasma into Peripheral Vein, Percutaneous Approach (ICD-10-PCS; 2023-08-27)
PROC: 30233N1 Transfusion of Nonautologous Red Blood Cells into Peripheral Vein, Percutaneous Approach (ICD-10-PCS; 2023-08-27)
PROC: 30233N1 Transfusion of Nonautologous Red Blood Cells into Peripheral Vein, Percutaneous Approach (ICD-10-PCS; 2023-08-27)
PROC: 30233N1 Transfusion of Nonautologous Red Blood Cells into Peripheral Vein, Percutaneous Approach (ICD-10-PCS; 2023-08-28)
PROC: 30233N1 Transfusion of Nonautologous Red Blood Cells into Peripheral Vein, Percutaneous Approach (ICD-10-PCS; 2023-08-29)
PROC: 0DJD8ZZ Inspection of Lower Intestinal Tract, Via Natural or Artificial Opening Endoscopic (ICD-10-PCS; 2023-08-30)
PROC: 0DJ08ZZ Inspection of Upper Intestinal Tract, Via Natural or Artificial Opening Endoscopic (ICD-10-PCS; 2023-08-30)
DX: T45.511A Poisoning by anticoagulants, accidental (unintentional), initial encounter (principal); K57.33 Diverticulitis of large intestine without perforation or abscess with bleeding; D62 Acute posthemorrhagic anemia; I10 Essential (primary) hypertension; I48.91 Unspecified atrial fibrillation; M35.3 Polymyalgia rheumatica; J44.9 Chronic obstructive pulmonary disease, unspecified; K44.9 Diaphragmatic hernia without obstruction or gangrene; K31.7 Polyp of stomach and duodenum; K64.8 Other hemorrhoids; N40.0 Benign prostatic hyperplasia without lower urinary tract symptoms; Z95.9 Presence of cardiac and vascular implant and graft, unspecified; Z79.82 Long term (current) use of aspirin; Z87.891 Personal history of nicotine dependence; Z79.02 Long term (current) use of antithrombotics/antiplatelets; Z79.60 Long term (current) use of unspecified immunomodulators and immunosuppressants; Z20.822 Contact with and (suspected) exposure to COVID-19
CPT/HCPCS: P9016; Q9967; S0164